=== PATIENT | female | born 1950 | race Caucasian/White ===

== ENCOUNTER → 2022-09-02 | Outpatient (CLI) | payer MEDICARE, BC, SELFPAY ==
--- NOTE | 2022-09-01 | TOBX_PTH ---
PATIENT: CORNELIO CASAREZ LOC: [facility] U#:[id number] AGE/SX: 72/F ROOM: RE09/02/[address]: JUNIOR RUIZ MD : 1950 BED: DIS: 09/02/2022 SPEC #: [id number] RECD: 09/02/22 10:25 STATUS: ED CHUCKIE #: [id number] KYUNG: 09/01/22 00:[address]: JUNIOR RUIZ DEPT: SURGICAL PATHOLOGY RECD BY: Luisana Skelton Tissues: Tongue, NOS Procedures: Special Stain Group I Surgery Specimen Level IV GMS Stain (control) HEADER OPERATION: Excisional biopsy anterior tongue PRE-OP DIAGNOSIS: 3-year history of lesion TISSUE SUBMITTED: Anterior tongue MICROSCOPIC DIAGNOSIS Anterior tongue lesion, biopsy: Suggestive of fibroma. No evidence of fungal organisms. See comment. AM:seema 09/05/2022 COMMENT GMS stain with matched control was used in the evaluation of this case. MICROSCOPIC DESCRIPTION Slides are reviewed. GROSS DESCRIPTION Received in fixative is one container labeled with the patient's name and designated tongue. The specimen consists of a piece of kurtz, indurated nodule measuring 0.3 x 0.3 x 0.2 cm. The specimen is inked and submitted entirely in one cassette. / SJ:rg 09/02/2022 TC:5 CPT: 00327, 34403
== END | disposition home or self-care (01) ==
PROVIDERS: Referring Provider Dentist Oral and Maxillofacial Surgery; Visit Provider Dentist Oral and Maxillofacial Surgery
DX: K13.29 Other disturbances of oral epithelium, including tongue (principal)
CPT/HCPCS: 88305; 88312